=== PATIENT | female | born 1955 | race Caucasian/White ===

== ENCOUNTER 2023-09-12 10:15 | Emergency (ER) | payer OTHER, SELFPAY ==
[2023-09-12 10:24] VITALS: BP 169/103
[2023-09-12 11:26] VITALS: BP 126/81
[2023-09-12 11:30] VITALS: BMI 26.7
[2023-09-12 11:42] LABS: % Basophils 0.7 % (0-2); % Eosinophils 5.1 % (0-6); % Immature Granulocytes 0.2 % (0-0.5); % Lymphocytes 22.5 % (20.5-51.1); % Monocytes 9.7 % (1.7-9.3); % Neutrophils 61.8 % (42.2-75.2); Absolute Eosinophils 0.3 10^3/uL (0-0.7); Absolute Lymphocytes 1.3 10^3/uL (1.2-3.4); Absolute Monocytes 0.6 10^3/uL (0.1-0.6); Absolute Neutrophils 3.6 10^3/uL (1.4-6.5); Hematocrit 40.4 % (37.0-47.0); Hemoglobin 14.7 g/dL (12.0-16.0); Mean Corp Hgb Conc. 36.4 g/dL (33.0-37.0); Mean Corpuscular Hgb 30.4 pg (27.0-31.0); Mean Corpuscular Volume 83.6 fL (81.0-99.0); Nucleated Red Blood Cells % 0 %; Platelet Count 295 10^3/uL (130-400); Red Blood Cell Count 4.83 10^6/uL (4.20-5.40); Red Cell Dist. Width 11.7 % (11.5-14.5); White Blood Cell Count 5.9 10^3/uL (4.8-10.8)
--- NOTE | 2023-09-12 11:50 | EDRN ---
Dr. Salinas in to see pt at this time.
--- NOTE | 2023-09-12 11:51 | ED.GENMED ---
History of Present Illness
General
Chief Complaint: Chest Problem
Source: patient
Time Seen by Provider: 09/12/23 11:36
Travel History
Have you had any contact with someone who has COVID-19?: No
Do you have any symptoms of coronavirus? Fever > 100 degrees, chills, cough, shortness of breath, sore throat, loss of taste or smell, muscle aches, or headache?: No
History of Present Illness
History of Present Illness:
68-year-old female presents to the emergency room for having episodes of shortness of breath, chest tightness and a burning in her chest. Symptoms wax and wane. Not clear that they are worse with exertion. Patient was started on Bactrim for UTI
recently.
Phy Exam
Physical Exam
Physical Exam:
General: Awake, Alert, Oriented X3. No acute distress.
Vitals: unremarkable
Head: Atraumatic
Eyes: Pupils equal, EOMI
Throat: Airway intact, no exudates
Neck: Trachea midline
Lungs: Clear and equal b/l
Heart: Regular rate, no murmurs
Abd: Soft, Nontender, No pulsatile mass
Neuro: Nonfocal
Skin: Warm, dry, no rash
Extremities: pulses equal b/l, no edema
Course
Orders/Labs/Results
Orders:
Orders
09/12/23 10:29
Electrocardiogram (*1) Urgent
Reason for Study: Chest Pain
EKG- Treatment ONCE
09/12/23 11:20
Cardiac Monitoring- Treatment ONCE
IV Insert/Care/Rem.- Treatment PRN
09/12/23 11:35
Complete Blood Count/With Diff Urgent
Comprehensive Metabolic Panel Urgent
Troponin I Urgent
09/12/23 11:50
Aspirin Chewable [Low Strength Aspirin] 324 mg PO NOW STA
09/12/23 11:51
CR Chest - 2 Views Urgent
Comment:
Reason For Exam: chest pain
09/12/23 13:48
Electrocardiogram (*1) Urgent
Reason for Study: Chest Pain
EKG- Treatment ONCE
09/12/23 13:53
Troponin I Urgent
Abnormal Lab Results
09/12/23
11:35
Monocytes % 9.7 H %
(1.7-9.3)
Sodium 131 L mmol/L
(135-145)
BUN 18 H mg/dl
(7-17)
Creatinine 1.3 H mg/dL
(0.6-1.0)
Calcium 10.5 H mg/dl
(8.4-10.2)
09/12/23 11:35
09/12/23 11:35
Vital Signs
Initial and Last Documented VS:
Initial Vital Signs
Temp Pulse Resp BP Pulse Ox
98.1 F 95 16 169/103 100
09/12/23 10:24 09/12/23 10:24 09/12/23 10:24 09/12/23 10:24 09/12/23 10:24
Last Documented Vital Signs
Temp Pulse Resp BP Pulse Ox
98.1 F 86 13 133/75 99
09/12/23 10:24 09/12/23 13:15 09/12/23 13:15 09/12/23 13:00 09/12/23 13:15
MDM/Problems Addressed
Differential Diagnosis Includes:
Acute coronary syndrome, heart failure
MDM/Problems Addressed:
Patient presents with symptoms. EKG initially shows no acute ischemic changes. Repeat EKG is unchanged. Troponins negative x 2. Chest x-ray is abnormal. She has a benign abdominal exam. Suspect this could be GERD but also an annual clinical
and is possible. Clinical patient follow cardiology as an outpatient. Also follow-up with primary care. Increase Nexium to twice a day for the short-term
*EKG
Interpreted by ED Provider?: Yes
Interpretation: abnormal
Heart Rate: 81
Rate: normal
Rhythm: sinus and PAC's
Interval: normal interval
QRS Pattern: normal QRS
Ischemia: no ischemia
*[employer] Interpretation
Rate: normal
Interpretation: abnormal
Rhythm: sinus and PAC's
*Critical Care Note
Total Time (30-74mins, 75-104mins- exclusive of procedures): Not Applicable
ED Attending Note
-
Portions of this chart may have been created with voice recognition software.� Occasional wrong word or��sound alike� substitutions may have occurred due to the inherent limitations of voice recognition software.
Discharge Plan
Departure
Patient Disposition: Home (Routine Discharge)
Date of Disposition: 09/12/23
Time of Disposition: 14:45
Patient with high blood pressure during this ER visit?: Yes
Condition: Good
Discharge Problem:
Chest pain
Instructions: Chest Pain DCA Follow Up, BLOOD PRESSURE
Prescriptions:
No Action
prednisone 50 mg tablet
50 mg PO DAILY 4 Days Qty: 4 0RF
cetirizine [Zyrtec] 10 mg tablet
10 mg PO DAILY 4 Days Qty: 4 0RF
famotidine 20 mg tablet
20 mg PO BID 4 Days Qty: 8 0RF
epinephrine [EpiPen 2-Tomer] 0.3 mg/0.3 mL auto-injector
0.3 mg IM ONCE Qty: 2 0RF
Referrals:
Jesu Jaquez MD [Family Provider] -
Michelle Stock MD [Active] -
Activity Restrictions/Additional Instructions:
Return for any worsening of symptoms.
Interventions
Interventions:
*Risk Screen - Suicide Last Done: 09/12/23 11:30
*General Assessment Last Done: 09/12/23 11:30
*Neglect/Abuse Screening Last Done: 09/12/23 11:30
ED- Fall Risk Assessment Last Done: 09/12/23 11:30
*ED COVID-19 Vaccine History Last Done: 09/12/23 11:30
ED- Cardiac Assessment Last Done: 09/12/23 11:30
ED- Pulmonary Assessment Last Done: 09/12/23 11:30
[2023-09-12 12:00] VITALS: BP 119/74
[2023-09-12 12:02] LABS: ALT (SGPT) 18 U/L (0-35); AST (SGOT) 29 U/L (14-36); Albumin 4.1 g/dl (3.5-5.0); Alkaline Phosphatase 85 U/L (38-126); Blood Urea Nitrogen 18 mg/dl (7-17); Calcium 10.5 mg/dl (8.4-10.2); Carbon Dioxide 28 mmol/L (22-30); Chloride 98 mmol/L (98-107); Estimated Creatinine Clearance 34 ml/min; Glucose 99 mg/dl (70-99); Potassium 4.1 mmol/L (3.5-5.1); Sodium 131 mmol/L (135-145); Total Bilirubin 0.7 mg/dl (0.2-1.3); Total Protein 6.8 g/dl (6.3-8.2); eGFR 44.51
[2023-09-12 12:06] LABS: Troponin I < 0.012 ng/ml
[2023-09-12] MEDS: LOW STRENGTH ASPIRIN 324 MG PO (12:06)
[2023-09-12 13:00] VITALS: BP 133/75
[2023-09-12 14:00] VITALS: BP 119/75
[2023-09-12 14:25] LABS: Troponin I < 0.012 ng/ml
[2023-09-12 15:01] VITALS: BP 106/79
== END 2023-09-12 15:15 | disposition home or self-care (01) ==
LOC: EMR 10:15
PROVIDERS: Physician Assistant; EMERGENCY PHYSICIAN Emergency Medicine; FAMILY PHYSICIAN Family Medicine
DX: R07.89 Other chest pain (principal); Z87.440 Personal history of urinary (tract) infections
CPT/HCPCS: 99283; 71046; 80053; 84484; 85025; 93005

== ENCOUNTER → 2023-10-04 12:46 | Outpatient (REF) | payer BC, SELFPAY | LOC: RCS 12:46 | PROVIDERS: ATTENDING PHYSICIAN Internal Medicine Cardiovascular Disease; FAMILY PHYSICIAN Family Medicine | DX: R07.89 Other chest pain (principal); R06.00 Dyspnea, unspecified; I10 Essential (primary) hypertension | CPT/HCPCS: 93017; 93350 ==

== ENCOUNTER → 2023-10-05 12:23 | Outpatient (REF) | payer SELFPAY | LOC: RAD 12:23 | PROVIDERS: ATTENDING PHYSICIAN Internal Medicine Cardiovascular Disease; FAMILY PHYSICIAN Family Medicine | DX: R07.89 Other chest pain (principal); Z82.49 Family history of ischemic heart disease and other diseases of the circulatory system | CPT/HCPCS: 75571 ==

== ENCOUNTER → 2024-06-05 07:29 | Outpatient (REF) | payer OTHER, SELFPAY | LOC: HWWDC 07:29 | PROVIDERS: ATTENDING PHYSICIAN Physician Assistant Medical | DX: Z12.31 Encounter for screening mammogram for malignant neoplasm of breast (principal) | CPT/HCPCS: 77063; 77067 ==

== ENCOUNTER → 2024-10-03 09:48 | Outpatient (REF) | payer OTHER, SELFPAY | LOC: WDC 09:48 | PROVIDERS: ATTENDING PHYSICIAN Physician Assistant Medical | DX: R92.2 Inconclusive mammogram (principal) | CPT/HCPCS: 76641 ==

== ENCOUNTER → 2024-10-25 13:09 | Outpatient (REF) | payer OTHER, SELFPAY | LOC: HWRAD 13:09 | PROVIDERS: ATTENDING PHYSICIAN Physician Assistant Medical | DX: M81.0 Age-related osteoporosis without current pathological fracture (principal) | CPT/HCPCS: 77080 ==

== ENCOUNTER → 2025-06-07 07:21 | Outpatient (REF) | payer OTHER, SELFPAY | LOC: HWWDC 07:21 | PROVIDERS: ATTENDING PHYSICIAN Physician Assistant Medical | DX: Z12.31 Encounter for screening mammogram for malignant neoplasm of breast (principal) | CPT/HCPCS: 77063; 77067 ==